=== PATIENT | female | born 1975 | race Two or more races ===

== ENCOUNTER 2024-06-04 15:13 | Emergency (ER) | payer MEDICAID, SELFPAY ==
[2024-06-04 15:23] VITALS: BP 111/73; PULSE 107; RESP 18; TEMP 37.1; O2SAT 96; BMI 24.0
--- NOTE | 2024-06-04 15:33 | PD.EDRME ---
Rapid Medical Screening Exam RME Arrival date/time: 06/04/24 15:13 49-year-old female presents to the emergency department today stating that she has diabetes concerned that she is been out of her insulin and her blood sugar is elevated Chief Complaint: General Adult/Misc Complain Vital signs: Vital Signs Temperature 98.7 F 06/04/24 15:23 Pulse Rate 107 H 06/04/24 15:23 Respiratory Rate 18 06/04/24 15:23 Blood Pressure 111/73 06/04/24 15:23 Pulse Oximetry (%) 96 06/04/24 15:23 Oxygen Delivery Method Room Air 06/04/24 15:23
[2024-06-04 15:45] LABS: Base Excess, Venous -7 (-3-3); O2 Saturation, Venous 58 % (96-97); PCO2, Venous 37 mmHg (36-56); PO2, Venous 30 mmHg (15-58)
[2024-06-04 15:53] LABS: Basophils % (Auto) 0 % (0-2.5); Eosinophils % (Auto) 0 % (0-10); Hematocrit 36.9 % (36.0-46.0); Hemoglobin 12.9 g/dL (12.0-16.0); Immature Granulocytes % (Auto) 0 % (0-0); Immature Granulocytes Auto 0.03 Thou/mm3 (0.00-0.00); Lymphocytes # (Auto) 1.7 Thou/mm3 (1.0-4.8); Lymphocytes % (Auto) 18 % (10-50); Mean Corpuscular Hemoglobin 33.2 pg (25.0-35.0); Mean Corpuscular Volume 95 fL (80-100); Monocytes # (Auto) 0.5 Thou/mm3 (0.0-0.8); Monocytes % (Auto) 5 % (0-12); Neutrophils # (Auto) 7.7 Thou/mm3 (1.8-7.7); Neutrophils % (Auto) 77 % (37-80); Nucleated Red Blood Cell % 0 /100 WBC (0); Platelet Count 326 Thou/mm3 (140-440); RDW Standard Deviation 49.1 fL (36.4-46.3); Red Blood Count 3.88 Miln/mm3 (4.00-5.20); White Blood Count 9.9 Thou/mm3 (3.6-11.0)
[2024-06-04 15:57] LABS: Beta Hydroxybutyrate 4.8 mmol/L (<0.6)
[2024-06-04 15:59] LABS: Glucose Estimated Average 232 mg/dL (80-131); Hemoglobin A1C 9.7 % Hgb (4.8-6.0)
[2024-06-04 16:06] LABS: Alanine Aminotransferase 20 U/L (10-49); Albumin, Serum 4.7 gm/dL (3.5-5.0); Albumin/Globulin Ratio 1.6 (1.2-2.2); Alkaline Phosphatase 136 U/L (46-116); Anion Gap 16 (7-16); Aspartate Amino Transferase 10 U/L (0-34); BUN/Creatinine Ratio 16 Ratio (12-20); Bilirubin,Total 0.5 mg/dL (0.3-1.2); Blood Urea Nitrogen 14 mg/dL (9-23); Calcium 9.6 mg/dL (8.3-10.6); Calcium (Corrected) 9.6 mg/dL (8.5-10.1); Carbon Dioxide 18.4 mMol/L (20.0-31.0); Chloride 101 mMol/L (98-107); Creatinine (Component) 0.9 mg/dL (0.6-1.3); Estimated Creatinine Clearance 66.5 mL/min (>60); Globulin 2.9 gm/dL (2.3-3.5); Glucose 228 mg/dL (74-106); Lipase 26 U/L (12-53); Osmolality,Calculated 277 (275-295); Potassium 3.8 mMol/L (3.4-5.1); Sodium 135 mMol/L (136-145); Total Protein 7.6 gm/dL (5.7-8.2); eGFR > 60 See Note
[2024-06-04 16:19] VITALS: BP 109/77; PULSE 104; RESP 17; TEMP 36.8; O2SAT 100
[2024-06-04 16:21] LABS: Collection Type, Urine Clean Catch
--- NOTE | 2024-06-04 16:33 | PD.EDADULT ---
ED General RME/HPI General Chief complaint: General Adult/Misc Complain Stated complaint: NOT FEELING GOOD OUT OF INSULIN Time Seen by Provider: 06/04/24 16:25 Arrival date/time: 06/04/24 15:13 CC: Elevated blood glucose level HPI the patient states she ran out of her medicine several days ago does not have an appointment again with her doctor until 07 June. The patient states that she is nauseated each time she eats food, but does not have persistent vomiting or diarrhea. Patient denies chest pain shortness of breath or difficulty breathing. RME / HPI RME / HPI narrative: 06/04/24 15:13 49-year-old female presents to the emergency department today stating that she has diabetes concerned that she is been out of her insulin and her blood sugar is elevated Related Data Home Medications ?Medication ?Instructions ?Recorded ?Confirmed atorvastatin 20 mg tablet 20 mg PO QPM 05/04/19 05/04/19 empagliflozin 10 mg tablet 10 mg PO QDAY 05/04/19 05/04/19 (Jardiance) sitagliptin phosphate 50 1 tab PO BID 05/04/19 05/04/19 mg-metformin 1,000 mg tablet (Janumet) Previous Rx's ?Medication ?Instructions ?Recorded insulin aspart U-100 100 unit/mL 7 unit (0.07 mL) subcut TID #15 mL 05/06/19 (3 mL) subcutaneous pen (Novolog FlexPen U-100 Insulin aspart) insulin detemir U-100 100 unit/mL 40 unit (0.4 mL) subcut QDAY #0 mL 05/06/19 subcutaneous solution (Levemir U-100 Insulin) insulin NPH isoph U-100 human 100 10 unit (0.1 mL) subcut QAM #15 mL 06/04/24 unit/mL (3 mL) subcutaneous pen (Humulin N NPH U-100 Insulin KwikPen) Allergies Allergy/AdvReac Type Severity Reaction Status Date / Time No Known Allergies Allergy Verified 05/04/19 07:12 Review of Systems Review of Systems Narrative Review of Systems: [General: Not in any acute distress Head normocephalic HEENT: Eyes: Pupils are PERRLA EOMs are intact nose no rhinorrhea mouth pink moist membranes uvula is midline swallow symmetrical all other subsystems of HEENT are within acceptable limits Neck is supple nontender Chest equal chest rise nontender to palpation Respiratory: Clear to auscultation no wheezes crackles or rubs CV: Rate rhythm is regular no murmurs rubs or clicks Abdomen is flat, soft nontender no masses positive bowel sounds all 4 quadrants Back: No CVA tenderness no spinous process tenderness from cervical spine thoracic and lumbar spine Skin: Intact no petechiae rash induration ulceration or crepitus Extremities: Moving all extremity against resistance cap refill less than 2 seconds neurosensory intact Neuro: Awake alert oriented x3 Glascow coma 15 no focal deficits] Course Quality Measures none Orders Category Date Time Status Glucose [Bedside Blood Glucose] NOW Care 06/04/24 17:46 Active A1C [Glycohemoglobin w (eAG)] Stat Lab 06/04/24 15:38 Completed Beta Hydroxybutyrate Stat Lab 06/04/24 15:38 Completed CBC Stat Lab 06/04/24 15:38 Completed Comprehensive Metabolic Panel Stat Lab 06/04/24 15:38 Completed HCG Qualitative,Urine Stat Lab 06/04/24 16:17 Completed Lipase Stat Lab 06/04/24 15:38 Completed UA, C/S IF [Urinalysis, C/S if Indicated] Stat Lab 06/04/24 16:17 Completed VBG [Venous Blood Gas] Stat Lab 06/04/24 15:38 Completed Ondansetron Odt [Zofran Odt] Med 06/04/24 16:37 Discontinued 4 mg PO X1 ONE Sodium Chloride 0.9% 1000 ml [Ns] 1,000 ml Med 06/04/24 16:15 Discontinued IV 999 mls/hr Sodium Chloride 0.9% 1000 ml [Ns] 1,000 ml Med 06/04/24 16:15 Discontinued IV 999 mls/hr Vital Signs Vital signs: Vital Signs Temperature 98.7 F 06/04/24 15:23 Pulse Rate 107 H 06/04/24 15:23 Respiratory Rate 18 06/04/24 15:23 Blood Pressure 111/73 06/04/24 15:23 Pulse Oximetry (%) 96 06/04/24 15:23 Oxygen Delivery Method Room Air 06/04/24 15:23 [facility] Patient data External records reviewed:: [facility] previous records Clinical information provided by:: patient Social determinants that could affect healthcare access:: none Patient has the following chronic illnesses:: Diabetes How is presenting disease/condition affected by chronic disease/condition?: exacerbated by Evaluation data The following diagnostics were reviewed and interpreted by me:: lab results and radiology exam(s) Lab and/or radiology exams considered but not ordered:: CBC shows no acute leukocytosis anemia thrombocytopenia VBG shows a pH of 7.30 with a normal pCO2 CMP shows no gap, elevated blood blood glucose of 245, pseudohyponatremia, no other significant electrolyte imbalances renal impairment, transaminitis or T. bili elevation. Beta hydroxybutyrate is 4.8, I believe this to be starvation driven. Interpretation Summary: Hyperglycemia was managed with fluids, patient be discharged home to continue on her medications when she gets them represcribed by [facility] in the meantime glargine pen is prescribed for the patient. Medications Medications considered but not ordered:: None Medication administrations:: Medication Administration History Discontinued Medications Sodium Chloride (Ns) 1,000 mls @ 999 mls/hr IV .Q1H1M ONE Stop: 06/04/24 17:15 Last Admin: 06/04/24 17:12 Dose: 999 mls/hr Documented By: Sodium Chloride (Ns) 1,000 mls @ 999 mls/hr IV .Q1H1M ONE Stop: 06/04/24 17:15 Last Admin: 06/04/24 17:15 Dose: Not Given Documented By: Non-Admin Reason: Cancelled by Provider Ondansetron HCl (Ondansetron Odt 4 Mg Tabrap) 4 mg PO X1 ONE; Protocol Stop: 06/04/24 16:38 Last Admin: 06/04/24 17:14 Dose: 4 mg Documented By: None Consultations Consultation(s) initiated? (list below): No Diagnosis Differential Diagnosis ED Complaint MDM: DKA dehydration hyperglycemia Most likely diagnosis given after review of the tests above:: Diabetes with hyperglycemia Admission Indicated Admission indicated?: not indicated Explain why admission is indicated or not indicated:: Stable for discharge Admission Request Was there a request for admission?: No Disposition Plan Disposition Plan: Discharge Discharge Attestation Discharge Attestation: The patient and all family members were given an opportunity to ask questions and understood the discharge instructions. Discharge instructions specifically effects, indications for sooner follow up or return to the emergency department, and the expected course of current diagnosis. Patient condition: Stable Medical Decision Making Differential Diagnosis Differential Diagnosis: DKA dehydration hyperglycemia Lab Data 06/04/24 15:38 06/04/24 15:38 Labs: Lab Results 06/04/24 06/04/24 Range/Units 15:38 16:17 WBC 9.9 (3.6-11.0) Thou/mm3 RBC 3.88 L (4.00-5.20) Miln/mm3 Hgb 12.9 (12.0-16.0) g/dL Hct 36.9 (36.0-46.0) % MCV 95 (80-100) fL MCH 33.2 (25.0-35.0) pg MCHC 35.0 (31.0-37.0) g/dl RDW Std Deviation 49.1 H (36.4-46.3) fL Plt Count 326 (140-440) Thou/mm3 Neut % (Auto) 77 (37-80) % Lymph % (Auto) 18 (10-50) % Tama % (Auto) 5 (0-12) % Eos % (Auto) 0 (0-10) % Baso % (Auto) 0 (0-2.5) % Neut # (Auto) 7.7 (1.8-7.7) Thou/mm3 Lymph # (Auto) 1.7 (1.0-4.8) Thou/mm3 Tama # (Auto) 0.5 (0.0-0.8) Thou/mm3 Eos # (Auto) 0.0 (0.0-0.5) Thou/mm3 Baso # (Auto) 0.0 (0.0-0.2) Thou/mm3 Immature Gran # (Auto) 0.03 H (0.00-0.00) Thou/mm3 Absolute Nucleated RBC 0.00 (0.00-0.00) Thou/mm3 Immature Gran % 0 (0-0) % Nucleated RBC % 0 (0) /100 WBC VBG pH 7.30 L (7.33-7.66) VBG pCO2 37 (36-56) mmHg VBG pO2 30 (15-58) mmHg VBG O2 Sat (Britney) 58 L (96-97) % VBG Base Excess -7 L (-3-3) Sodium 135 L (136-145) mMol/L Potassium 3.8 (3.4-5.1) mMol/L Chloride 101 (98-107) mMol/L Carbon Dioxide 18.4 L (20.0-31.0) mMol/L Anion Gap 16 (7-16) BUN 14 (9-23) mg/dL Creatinine 0.9 (0.6-1.3) mg/dL Estim Creat Clear Calc 66.5 (>60) mL/min eGFR > 60 (60 - ) See Note BUN/Creatinine Ratio 16 (12-20) Ratio Glucose 228 H (74-106) mg/dL Estimated Ave Glu mg/dL 232 H (80-131) mg/dL Hemoglobin A1c 9.7 H (4.8-6.0) % Hgb Calculated Osmolality 277 (275-295) Calcium 9.6 (8.3-10.6) mg/dL Corrected Calcium 9.6 (8.5-10.1) mg/dL Total Bilirubin 0.5 (0.3-1.2) mg/dL AST 10 (0-34) U/L ALT 20 (10-49) U/L Alkaline Phosphatase 136 H (46-116) U/L Total Protein 7.6 (5.7-8.2) gm/dL Albumin 4.7 (3.5-5.0) gm/dL Globulin 2.9 (2.3-3.5) gm/dL Albumin/Globulin Ratio 1.6 (1.2-2.2) Lipase 26 (12-53) U/L Beta-Hydroxybutyrate/Acetoacetate 4.8 H (<0.6) mmol/L Ur Collection Type Clean Catch Urine Color Yellow (Lt Yel-Yel) Urine Clarity Hazy (Clear/Hazy) Urine pH 5.5 (5.0-7.0) Ur Specific Powell 1.022 (1.001-1.035) Urine Protein 1+ A (Neg - Trace) Urine Glucose (UA) 4+ A (Negative) Urine Ketones 4+ A (Negative) Urine Blood Negative (Negative) Urine Nitrite Negative (Negative) Urine Bilirubin 1+ A (Negative) Urine Urobilinogen (Auto) 2.0 (0.0-1.0) mg/dL Ur Leukocyte Esterase Negative (Negative) Urine RBC 3 (0-3) /hpf Urine WBC 6 H (0-5) /hpf Ur Squamous Epith Cells 6 H (0-5) /hpf Urine Bacteria None (None) Hyaline Casts < 1 (0-1) /hpf Ur Culture Indicated? Not Indicated Urine HCG, Qual Negative Discharge Plan Plan Patient Disposition: HOME (Self Care) Patient condition on transfer: Stable Prescriptions/Referrals Prescriptions/Med Rec: New Humulin N NPH Insulin KwikPen 100 unit/mL (3 mL) insulin pen 10 unit subcut QAM Qty: 15 0RF No Action atorvastatin 20 mg Tablet 20 mg PO QPM Janumet 50-1,000 mg Tablet 1 tab PO BID Jardiance 10 mg Tablet 10 mg PO QDAY Novolog FlexPen U-100 Insulin 100 unit/mL (3 mL) insulin pen 7 unit SC TID Qty: 15 0RF Levemir U-100 Insulin 100 unit/mL Solution 40 unit SUBCUT QDAY Qty: 0 0RF Problem List Clinical Impression: Hyperglycemia Patient/Caregiver Discharge Instructions Education Materials: ED Diabetes with High Blood Sugar Additional Instructions: Take the medications as prescribed if there is a worsening of symptoms make sure you follow-up with your primary care doctor as stated on your appointment date. Print Language: [place] Stand Alone Forms: Aysha Award Info., Patient Portal Info Letter, Work/School Release PA/ORGANIZATIONAL DEVELOPMENT CONSULTANT Supervising Physician PA/ORGANIZATIONAL DEVELOPMENT CONSULTANT Supervising Physician: Randolph Haddad ENP
[2024-06-04 16:41] LABS: HCG Qualitative,Urine Negative
[2024-06-04 16:49] LABS: Bilirubin,Urine 1+ (Negative); Blood,Urine Negative (Negative); Color,Urine Yellow (Lt Yel-Yel); Culture Indicated,Urine Not Indicated; Glucose, Urine 4+ (Negative); Hyaline Casts,Urine < 1 /hpf (0-1); Ketones,Urine 4+ (Negative); Leukocyte Esterase,Urine Negative (Negative); Nitrite,Urine Negative (Negative); PH,Urine 5.5 (5.0-7.0); Protein,Urine 1+ (Neg - Trace); RBC,Urine 3 /hpf (0-3); Specific Gravity,Urine 1.022 (1.001-1.035); Squamous Epithelial Cell,Urine 6 /hpf (0-5); WBC,Urine 6 /hpf (0-5)
[2024-06-04] MEDS: SODIUM CHLORIDE 0.9% 1000 ML 1,000 ML 999 ML IV (17:12)
[2024-06-04] MEDS: ONDANSETRON ODT 4 MG TABRAP PO (17:14)
[2024-06-04 17:16] LABS: Clarity,Urine Hazy (Clear/Hazy)
[2024-06-04 18:12] VITALS: BP 107/63; PULSE 88; RESP 16; TEMP 36.9; O2SAT 97
--- NOTE | 2024-06-04 18:28 | PC.NURSE ---
FOOD GIVEN TO PT AT THIS TIME PER DOCTORS ORDERS
--- NOTE | 2024-06-04 18:30 | PC.NURSE ---
Patient provided with sandwich and juice.
== END 2024-06-04 19:19 | disposition home or self-care (01) ==
LOC: SERX 19:02
PROVIDERS: Nurse Practitioner Primary Care; Emergency Provider Emergency Medicine
DX: R73.9 Hyperglycemia, unspecified (principal)
CPT/HCPCS: 36415; 80053; 81001; 81025; 82010; 82803; 83036; 83690; 85025; 96360; 96361; 99284; J7030; Q0162

== ENCOUNTER 2024-06-05 11:27 | Inpatient (IN) | payer MEDICAID, SELFPAY ==
[2024-06-05] VITALS (20 sets, daily range): BP systolic 90–136; BP diastolic 40–76; PULSE 78–130; RESP 15–98; TEMP 36.6–37.3; O2SAT 95–99; BMI 25.7
--- NOTE | 2024-06-05 12:51 | PD.EDADULT ---
ED General RME/HPI General Chief complaint: General Adult/Misc Complain Stated complaint: FEELS SHAKEY AND DOES NOT FEEL GOOD Time Seen by Provider: 06/05/24 11:54 Arrival date/time: 06/05/24 11:27 CC: High blood sugar HPI nausea and vomiting HPI patient was seen here yesterday for the same complaint after running out of her medications due to them not being available at the pharmacy she has an appointment on 07 June for her primary care provider. Patient was discharged yesterday with insulin pen prescription however it was not covered by her insurance, so the patient did not picking supervisor her medications and return to the emergency room today with a high blood sugar and nausea. Patient has no other complaints. Related Data Home Medications ?Medication ?Instructions ?Recorded ?Confirmed insulin glulisine U-100 100 See Rx Instructions .Route .COMPLEX 06/05/24 06/05/24 unit/mL subcutaneous pen (Apidra SoloStar U-100 Insulin) semaglutide 1 mg/dose (4 mg/3 mL) 1 mg subcut QWEEK 06/05/24 06/05/24 subcutaneous pen injector (Ozempic) Previous Rx's ?Medication ?Instructions ?Recorded flash glucose scanning reader #1 ea 06/07/24 (FreeStyle Jhonatan 2 Cove) flash glucose sensor (FreeStyle #1 ea 06/07/24 Jhonatan 2 Sensor kit) insulin degludec 200 unit/mL (3 20 unit (0.1 mL) subcut QDAY #9 mL 06/07/24 mL) subcutaneous pen pen needle, diabetic 30 gauge x #1,200 ea 06/07/24 5/16 Allergies Allergy/AdvReac Type Severity Reaction Status Date / Time No Known Allergies Allergy Verified 06/05/24 11:29 Review of Systems Review of Systems Narrative Review of Systems: GEN: No fever, no chills, no weight loss EYES: No discharge, no visual changes, no pain HEENT: No ear pain, no congestion, no sore throat PULM: No shortness of breath, no cough, no congestion CV: No chest pain, no dyspnea on exertion, no palpitations GI: + nausea, + vomiting, no diarrhea, no pain, no constipation : No frequency, no urgency, no dysuria MUSC/SKEL: No joint pain, no back pain SKIN: No rash PSYCH: No hallucinations, no depression HEME/LYMPH: No easy bleeding or bruising tendencies NEURO: No weakness, no headache Past Medical History Past Medical History CARDIAC: Positive Hypercholesterolemia; Negative Congestive Heart Failure RESPIRATORY: Positive Smoking and Tobacco Use; Negative Chronic Obstructive Pulmonary Disease (COPD) GENITOURINARY: Negative Renal Disease ENDOCRINE: Positive Diabetes Mellitus Type 2; Negative Diabetes Mellitus Type 1 OTHER HISTORY: Positive Hospitalization Surgical History SURGICAL: Positive Section Social History SMOKING STATUS: Current every day smoker SECOND HAND EXPOSURE: No SUBSTANCE USE: does not use ED Exam Narrative Physical exam: [General: Thin, but not emaciated and mild discomfort but not in any acute distress Head normocephalic HEENT: Within acceptable limits Neck is supple nontender Chest equal chest rise nontender to palpation Respiratory: Clear to auscultation no wheezes crackles or rubs CV: Rate rhythm is regular, tachycardic, no murmurs rubs or clicks Abdomen is distended secondary to body habitus soft nontender no masses positive bowel sounds all 4 quadrants Back: No CVA tenderness no spinous process tenderness from cervical spine thoracic and lumbar spine Skin: Intact no petechiae rash induration ulceration or crepitus Extremities: Moving all extremity against resistance cap refill less than 2 seconds neurosensory intact Neuro: Awake alert oriented x3 Glascow coma 15 no focal deficits] Course Course Course Narrative: Patient is in DKA with a gap of 22, CO2 of less than 12. Blood sugar of 680 and elevated beta hydroxy although I do think part of this is starvation. Patient was seen here yesterday and was borderline but not in full-blown DKA however the patient did not picking supervisor insulin as prescribed and returns today with persistent nausea and vomiting. Patient's case discussed with Dr. Martinez, and Dr. Merino, who agreed to accept the patient for admission for DKA. Quality Measures VTE prophylaxis Orders Category Date Time Status Bedside Blood Glucose NOW Care 06/05/24 12:40 Completed EKG (ED ONLY) *Do not use* NOW Care 06/05/24 12:06 Completed Insert IV NOW Care 06/05/24 12:07 Completed EKG (ED Only) Stat Exams 06/05/24 12:06 Ordered Beta Hydroxybutyrate Stat Lab 06/05/24 12:36 Completed CBC Stat Lab 06/05/24 12:36 Completed Comprehensive Metabolic Panel Stat Lab 06/05/24 12:36 Completed Magnesium Stat Lab 06/05/24 12:36 Completed VBG [Venous Blood Gas] Stat Lab 06/05/24 12:36 Completed Insulin Reg 100 Units/100 ml [Myxredlin] Med 06/05/24 14:09 Discontinued 100 unit in 100 ml IV 0.1 unit/kg/hr Metoclopramide Inj [Reglan Inj] Med 06/05/24 13:47 Discontinued 5 mg IVP X1 ONE Ondansetron Inj [Zofran Inj] Med 06/05/24 12:07 Discontinued 4 mg IV X1 ONE Ondansetron Inj [Zofran Inj] Med 06/05/24 12:50 Discontinued 4 mg IV X1 ONE Sodium Chloride 0.9% 1000 ml [Ns] 1,000 ml Med 06/05/24 13:19 Discontinued IV 250 mls/hr Sodium Chloride 0.9% 1000 ml [Ns] 1,000 ml Med 06/05/24 12:07 Discontinued IV 999 mls/hr Sodium Chloride 0.9% 1000 ml [Ns] 1,000 ml Med 06/05/24 12:50 Discontinued IV 999 mls/hr Vital Signs Vital signs: Vital Signs Temperature 99.1 F 06/05/24 11:55 Pulse Rate 113 H 06/05/24 11:55 Respiratory Rate 16 06/05/24 11:55 Blood Pressure 90/51 L 06/05/24 11:55 Pulse Oximetry (%) 97 06/05/24 11:55 Oxygen Delivery Method Room Air 06/05/24 11:55 [facility] Patient data External records reviewed:: [facility] previous records Clinical information provided by:: patient Social determinants that could affect healthcare access:: none Patient has the following chronic illnesses:: None How is presenting disease/condition affected by chronic disease/condition?: uneffected by Evaluation data The following diagnostics were reviewed and interpreted by me:: lab results and radiology exam(s) Lab and/or radiology exams considered but not ordered:: CBC shows leukocytosis no anemia thrombocytopenia CMP shows pseudohyponatremia significantly elevated glucose at 685, with a CO2 less than 10 gap of 22. No transaminitis or T. bili elevation VBG shows a pH of 7.22 base deficit of 19 low pCO2 Interpretation Summary: Patient has persistent nausea vomiting this patient is in DKA. Will admit to ICU Medications Medications considered but not ordered:: None Medication administrations:: Medication Administration History Discontinued Medications Acetaminophen (Acetaminophen 325 Mg Tablet) 650 mg PO Q4HR PRN PRN Reason: PAIN SCALE 1-3 (mild Stop: 07/05/24 14:25 Acetaminophen (Acetaminophen Supp 650 Mg Supp) 650 mg CO Q4HR PRN PRN Reason: PAIN SCALE 1-3 (mild Stop: 07/05/24 14:25 Al Hydrox/Mg Hydrox/Simethicone (Mg Hyd/Al Hyd/Tim (Maalox Reg) Susp 30 Ml Udc) 30 ml PO Q4HR PRN PRN Reason: Heartburn or Upset Stomach Stop: 07/05/24 14:25 Dextrose (Dextrose 50%-Water Inj 50 Ml Syringe) 25 ml IV PRNMRX1 PRN PRN Reason: Blood Sugar - Low Dextrose (Dextrose 50%-Water Inj 50 Ml Syringe) 25 ml IV Q15MIN PRN PRN Reason: BG 50-70 responsive npo pt Stop: 07/06/24 09:58 Dextrose (Dextrose 50%-Water Inj 50 Ml Syringe) 50 ml IV Q15MIN PRN PRN Reason: BG <50 OR BG <70 & pt unresponsive Stop: 07/06/24 09:58 Enoxaparin Sodium (Enoxaparin Sod Inj 40 Mg/0.4 Ml Syringe) 40 mg SC QDAY WANDA Stop: 06/20/24 08:59 Last Admin: 06/07/24 10:39 Dose: 40 mg Documented By: Admin: 06/06/24 08:00 Dose: 40 mg Documented By: DIANA Glucagon (Glucagon Inj 1 Mg Vial) 1 mg IM Q15MIN PRN PRN Reason: BG <70, and no IV access Sodium Chloride (Ns) 1,000 mls @ 999 mls/hr IV .Q1H1M ONE Stop: 06/05/24 13:07 Last Infusion: 06/05/24 15:00 Dose: Infused Documented By: Admin: 06/05/24 12:59 Dose: 999 mls/hr Documented By: EF Sodium Chloride (Ns) 1,000 mls @ 999 mls/hr IV .Q1H1M ONE Stop: 06/05/24 13:50 Last Infusion: 06/05/24 15:00 Dose: Infused Documented By: Admin: 06/05/24 13:01 Dose: 999 mls/hr Documented By: EF Sodium Chloride (Ns) 1,000 mls @ 250 mls/hr IV .Q4H WANDA Stop: 06/06/24 13:18 Last Infusion: 06/06/24 10:16 Dose: Infused Documented By: Admin: 06/05/24 13:59 Dose: 250 mls/hr Documented By: EF Insulin Human Regular (Myxredlin) 100 unit in 100 mls @ 6.577 mls/hr IV .[id number] PRN; Protocol PRN Reason: PER PROTOCOL Stop: 07/05/24 14:08 Last Titration: 06/06/24 09:00 Dose: 0 unit/kg/hr, 0 mls/hr Documented By: DIANA Co-signed By: MR Titration: 06/06/24 08:00 Dose: 0.025 unit/kg/hr, 1.644 mls/hr Documented By: DIANA Co-signed By: MR Titration: 06/06/24 07:00 Dose: 0.05 unit/kg/hr, 3.289 mls/hr Documented By: AG Co-signed By: MR Titration: 06/06/24 06:00 Dose: 0.025 unit/kg/hr, 1.644 mls/hr Documented By: BB Co-signed By: SA Titration: 06/06/24 05:00 Dose: 0.025 unit/kg/hr, 1.644 mls/hr Documented By: BB Co-signed By: SA Titration: 06/06/24 04:00 Dose: 0.025 unit/kg/hr, 1.644 mls/hr Documented By: BB Co-signed By: SA Titration: 06/06/24 03:13 Dose: 0.025 unit/kg/hr, 1.644 mls/hr Documented By: BB Co-signed By: SA Titration: 06/06/24 02:00 Dose: 0.05 unit/kg/hr, 3.289 mls/hr Documented By: BB Co-signed By: SA Titration: 06/06/24 01:00 Dose: 0.05 unit/kg/hr, 3.289 mls/hr Documented By: BB Co-signed By: CLT Titration: 06/06/24 00:00 Dose: 0.05 unit/kg/hr, 3.289 mls/hr Documented By: BB Co-signed By: CLT Titration: 06/05/24 23:00 Dose: 0.05 unit/kg/hr, 3.289 mls/hr Documented By: MENG Co-signed By: CLT Titration: 06/05/24 22:00 Dose: 0.05 unit/kg/hr, 3.289 mls/hr Documented By: BB Co-signed By: CLT Titration: 06/05/24 21:00 Dose: 0.05 unit/kg/hr, 3.289 mls/hr Documented By: BB Co-signed By: CLT Titration: 06/05/24 20:00 Dose: 0.05 unit/kg/hr, 3.289 mls/hr Documented By: MENG Co-signed By: CLT Titration: 06/05/24 19:18 Dose: 0.05 unit/kg/hr, 3.289 mls/hr Documented By: MENG Co-signed By: CMN Titration: 06/05/24 18:00 Dose: 0.1 unit/kg/hr, 6.577 mls/hr Documented By: AT Co-signed By: WL Titration: 06/05/24 17:00 Dose: 0.1 unit/kg/hr, 6.577 mls/hr Documented By: AT Co-signed By: WL Titration: 06/05/24 16:00 Dose: 0.1 unit/kg/hr, 6.577 mls/hr Documented By: AT Co-signed By: WL Titration: 06/05/24 15:38 Dose: 0.1 unit/kg/hr, 6.577 mls/hr Documented By: SHELLIE Co-signed By: GM Admin: 06/05/24 14:38 Dose: 0.1 unit/kg/hr, 6.577 mls/hr Documented By: KM Co-signed By: HITESH Potassium Chloride (Kcl Ivpb) 10 meq in 100 mls @ 100 mls/hr IV .Q1H PRN PRN Reason: IF POTASSIUM LESS THAN 3.3 Stop: 07/05/24 14:25 Magnesium Sulfate (Magnesium Sulfate Ivpb) 2 gm in 50 mls @ 25 mls/hr IV .Q2H PRN PRN Reason: PER DKA PROTOCOL Stop: 07/05/24 14:25 Last Infusion: 06/06/24 10:16 Dose: Infused Documented By: Admin: 06/05/24 16:20 Dose: 25 mls/hr Documented By: AT Dextrose/Lactated Ringer's (D5-Lr) 1,000 mls @ 250 mls/hr IV .Q4H PRN PRN Reason: PER PROTOCOL Stop: 07/05/24 14:25 Lactated Ringer's (Lactated Ringers) 1,000 mls @ 250 mls/hr IV .Q4H PRN PRN Reason: PER PROTOCOL Stop: 06/06/24 14:25 Potassium Chloride 20 meq/ (Lactated Ringer's) 1,010 mls @ 250 mls/hr IV .Q4H3M PRN PRN Reason: K LEVEL 3.3 TO 5.3mM/L Stop: 07/05/24 14:25 Last Infusion: 06/05/24 19:19 Dose: 0 mls/hr Documented By: Admin: 06/05/24 17:20 Dose: 250 mls/hr Documented By: AT Potassium Chloride 40 meq/ (Lactated Ringer's) 1,020 mls @ 250 mls/hr IV .Q4H5M PRN PRN Reason: K LEVEL < 3.3 mM/L Stop: 07/05/24 14:25 Potassium Chloride 40 meq/ (Dextrose/Lactated Ringer's) 1,020 mls @ 250 mls/hr IV .Q4H5M PRN PRN Reason: K LEVEL < 3.3mM/L Stop: 07/05/24 14:25 Potassium Cl/Dextrose/Lact Ringer's (Kcl 20 Meq/L In D5-Lr) 20 meq in 1,000 mls @ 250 mls/hr IV .Q4H PRN PRN Reason: K LEVEL 3.3 TO 5.3 mM/L Stop: 07/05/24 14:25 Last Infusion: 06/06/24 10:17 Dose: Infused Documented By: Admin: 06/06/24 04:12 Dose: 250 mls/hr Documented By: Infusion: 06/06/24 04:12 Dose: Infused Documented By: Admin: 06/05/24 23:35 Dose: 250 mls/hr Documented By: Infusion: 06/05/24 23:16 Dose: Infused Documented By: Admin: 06/05/24 19:16 Dose: 250 mls/hr Documented By: BB Potassium Chloride (Kcl Ivpb) 10 meq in 100 mls @ 50 mls/hr IV PRN PRN PRN Reason: K LEVEL 3.3 to 5.3 & BG > 200 Stop: 07/05/24 14:25 Potassium Phosphate (Pot Phos 15 Mmol In Ns 250 Ml) 15 mmol in 250 mls @ 62.5 mls/hr IV PRN PRN PRN Reason: Phosphate <= 1mg/dL Stop: 07/05/24 14:25 Sodium Phosphate 15 mmol/ (Sodium Chloride) 255 mls @ 62.5 mls/hr IV .Q4H5M PRN PRN Reason: Phosphate <= 1mg/dL and K> than 5.3 Stop: 07/05/24 14:25 Dextrose/Lactated Ringer's (D5-Lr) 1,000 mls @ 250 mls/hr IV .Q4H PRN PRN Reason: PER PROTOCOL Stop: 07/05/24 15:07 Lactated Ringer's (Lactated Ringers) 1,000 mls @ 250 mls/hr IV .Q4H PRN PRN Reason: PER PROTOCOL Stop: 06/06/24 15:07 Insulin Glargine (Insulin Glargine (Lantus) 5 Unit/0.05 Ml (Per 5 Units)) 35 unit SC X1 ONE Stop: 06/06/24 07:43 Last Admin: 06/06/24 08:00 Dose: 35 unit Documented By: AG Co-signed By: Insulin Glargine (Insulin Glargine (Lantus) 5 Unit/0.05 Ml (Per 5 Units)) 35 unit SC QDAY [facility] Stop: 07/07/24 08:59 Insulin Glargine (Insulin Glargine (Lantus) 5 Unit/0.05 Ml (Per 5 Units)) 20 unit SC HS [facility] Stop: 07/07/24 20:59 Insulin Human Lispro (Insulin Lispro (Admelog) 1 Unit/0.01 Ml Unit) 0 unit SC ACHS [facility]; Protocol Stop: 07/06/24 11:29 Last Admin: 06/07/24 08:15 Dose: Not Given Documented By: BF Non-Admin Reason: Per Protocol Comments: 129 Admin: 06/06/24 20:07 Dose: 4 unit Documented By: JULISSA Co-signed By: MELITON Admin: 06/06/24 18:33 Dose: Not Given Documented By: BF Non-Admin Reason: Per Protocol Comments: 106 Admin: 06/06/24 12:13 Dose: 10 unit Documented By: MARY Co-signed By: THOMAS Insulin Human Lispro (Insulin Lispro (Admelog) 1 Unit/0.01 Ml Unit) 0 unit SC ACHS WANDA; Protocol Stop: 07/06/24 11:29 Last Admin: 06/07/24 11:38 Dose: 6 unit Documented By: SG Co-signed By: GC Insulin Human Regular (Insulin Hum Regular 1 Unit/0.01 Ml (Per Unit)) 8 unit IV X1 ONE Stop: 06/05/24 14:27 Last Admin: 06/05/24 14:46 Dose: 8 unit Documented By: KM Co-signed By: EF Magnesium Hydroxide (Milk Of Magnesia Susp 30 Ml Udc) 30 ml PO QDAY PRN PRN Reason: CONSTIPATION Stop: 07/05/24 14:25 Metoclopramide HCl (Metoclopramide Inj 5 Mg/Ml Vial 2 Ml) 5 mg IVP X1 ONE; Protocol Stop: 06/05/24 13:48 Last Admin: 06/05/24 13:59 Dose: 5 mg Documented By: EF Nitroglycerin (Nitroglycerin 0.4 Mg Subl Btl #25) 0.4 mg SL Q5MIN PRN PRN Reason: CHEST PAIN Ondansetron HCl (Ondansetron Inj 2 Mg/Ml Inj 2 Ml) 4 mg IV X1 ONE; Protocol Stop: 06/05/24 12:08 Last Admin: 06/05/24 13:02 Dose: 4 mg Documented By: EF Ondansetron HCl (Ondansetron Inj 2 Mg/Ml Inj 2 Ml) 4 mg IV X1 ONE; Protocol Stop: 06/05/24 12:51 Last Admin: 06/05/24 14:08 Dose: Not Given Documented By: EF Non-Admin Reason: Duplicate Medication on eMAR Ondansetron HCl (Ondansetron Inj 2 Mg/Ml Inj 2 Ml) 4 mg IV Q6HR PRN PRN Reason: NAUSEA OR VOMITING Stop: 07/05/24 14:25 Last Admin: 06/05/24 20:13 Dose: 4 mg Documented By: BB Pantoprazole Sodium (Pantoprazole Inj 40 Mg Vial) 40 mg IV QDAY WANDA Stop: 07/06/24 08:59 Last Admin: 06/07/24 10:39 Dose: 40 mg Documented By: Admin: 06/06/24 08:00 Dose: 40 mg Documented By: AG Potassium Phos/Sodium Phos (N[facility] 1 Packet (1.5 Gm)) 2 packet PO X1 ONE Stop: 06/06/24 09:49 Last Admin: 06/06/24 10:16 Dose: Not Given Documented By: DIANA Non-Admin Reason: Discontinued Sodium Bicarbonate (Sodium Bicarb Inj 8.4% Syr 50 Ml Syringe) 50 ml IV PRN PRN PRN Reason: For ph <= to 7.0 Stop: 07/05/24 14:25 None Consultations Consultation(s) initiated? (list below): Yes Consultation #1 (Physician, Specialty, Details): Wilber Time: 14:20 Diagnosis Differential Diagnosis ED Complaint MDM: Diabetes with hyperglycemia DKA gastroparesis Most likely diagnosis given after review of the tests above:: DKA Admission Indicated Admission indicated?: indicated Explain why admission is indicated or not indicated:: Quires further close medical management Admission Request Was there a request for admission?: No Disposition Plan Disposition Plan: Admit Medical Decision Making Differential Diagnosis Differential Diagnosis: Diabetes with hyperglycemia DKA gastroparesis Lab Data 06/07/24 06:30 06/07/24 04:37 Labs: Lab Results 06/05/24 Range/Units 12:36 WBC 16.1 H D (3.6-11.0) Thou/mm3 RBC 3.87 L (4.00-5.20) Miln/mm3 Hgb 12.8 (12.0-16.0) g/dL Hct 37.9 (36.0-46.0) % MCV 98 (80-100) fL MCH 33.1 (25.0-35.0) pg MCHC 33.8 (31.0-37.0) g/dl RDW Std Deviation 52.5 H (36.4-46.3) fL Plt Count 281 D (140-440) Thou/mm3 Neut % (Auto) 84 H (37-80) % Lymph % (Auto) 12 (10-50) % Gulf % (Auto) 3 (0-12) % Eos % (Auto) 0 (0-10) % Baso % (Auto) 0 (0-2.5) % Neut # (Auto) 13.4 H (1.8-7.7) Thou/mm3 Lymph # (Auto) 2.0 (1.0-4.8) Thou/mm3 Gulf # (Auto) 0.5 (0.0-0.8) Thou/mm3 Eos # (Auto) 0.0 (0.0-0.5) Thou/mm3 Baso # (Auto) 0.0 (0.0-0.2) Thou/mm3 Immature Gran # (Auto) 0.08 H (0.00-0.00) Thou/mm3 Absolute Nucleated RBC 0.00 (0.00-0.00) Thou/mm3 Immature Gran % 1 H (0-0) % Nucleated RBC % 0 (0) /100 WBC VBG pH 7.22 L (7.33-7.66) VBG pCO2 15 L D (36-56) mmHg VBG pO2 57 D (15-58) mmHg VBG O2 Sat (Britney) 89 L (96-97) % VBG Base Excess -19 L (-3-3) Sodium 129 L (136-145) mMol/L Potassium 4.9 D (3.4-5.1) mMol/L Chloride 97 L (98-107) mMol/L Carbon Dioxide < 10.0 L* (20.0-31.0) mMol/L Anion Gap 22 H (7-16) BUN 11 (9-23) mg/dL Creatinine 1.2 (0.6-1.3) mg/dL Estim Creat Clear Calc 50.6 L (>60) mL/min eGFR 55 L (60 - ) See Note BUN/Creatinine Ratio 9 L (12-20) Ratio Glucose 685 H* D (74-106) mg/dL Calculated Osmolality 291 (275-295) Calcium 9.5 (8.3-10.6) mg/dL Corrected Calcium 9.5 (8.5-10.1) mg/dL Magnesium 1.8 (1.6-2.6) mg/dL Total Bilirubin 0.4 (0.3-1.2) mg/dL AST 17 (0-34) U/L ALT 13 (10-49) U/L Alkaline Phosphatase 136 H (46-116) U/L Total Protein 7.4 (5.7-8.2) gm/dL Albumin 4.6 (3.5-5.0) gm/dL Globulin 2.8 (2.3-3.5) gm/dL Albumin/Globulin Ratio 1.6 (1.2-2.2) Beta-Hydroxybutyrate/Acetoacetate 6.1 H (<0.6) mmol/L Discharge Plan Plan Patient Disposition: Admit Acute Care w/in Hospital Patient condition on transfer: Stable Problem List Clinical Impression: DKA (diabetic ketoacidoses), Nausea, Vomiting PA/RESPIRATORY THERAPY ASSISTANT Supervising Physician PA/RESPIRATORY THERAPY ASSISTANT Supervising Physician: Randolph Haddad ENP
[2024-06-05 12:55] LABS: Base Excess, Venous -19 (-3-3); O2 Saturation, Venous 89 % (96-97); PCO2, Venous 15 mmHg (36-56); PO2, Venous 57 mmHg (15-58); pH, Venous 7.22 (7.33-7.66)
--- NOTE | 2024-06-05 12:56 | PC.NURSE ---
WENT TO DO PT EKG PROVIDER MELY WAS AT BEDSIDE SPEAKING WITH PT AND STATED THAT PT DIDNT NEED EKG
[2024-06-05 12:59] LABS: Beta Hydroxybutyrate 6.1 mmol/L (<0.6)
[2024-06-05] MEDS: SODIUM CHLORIDE 0.9% 1000 ML 1,000 ML 999 ML IV ×2 (12:59→13:01)
[2024-06-05 13:00] LABS: Basophils % (Auto) 0 % (0-2.5); Eosinophils % (Auto) 0 % (0-10); Hematocrit 37.9 % (36.0-46.0); Hemoglobin 12.8 g/dL (12.0-16.0); Immature Granulocytes % (Auto) 1 % (0-0); Immature Granulocytes Auto 0.08 Thou/mm3 (0.00-0.00); Lymphocytes % (Auto) 12 % (10-50); Mean Corpuscular HGB Conc 33.8 g/dl (31.0-37.0); Mean Corpuscular Hemoglobin 33.1 pg (25.0-35.0); Mean Corpuscular Volume 98 fL (80-100); Monocytes # (Auto) 0.5 Thou/mm3 (0.0-0.8); Monocytes % (Auto) 3 % (0-12); Neutrophils # (Auto) 13.4 Thou/mm3 (1.8-7.7); Neutrophils % (Auto) 84 % (37-80); Nucleated Red Blood Cell % 0 /100 WBC (0); Platelet Count 281 Thou/mm3 (140-440); RDW Standard Deviation 52.5 fL (36.4-46.3); Red Blood Count 3.87 Miln/mm3 (4.00-5.20); White Blood Count 16.1 Thou/mm3 (3.6-11.0)
[2024-06-05] MEDS: ONDANSETRON INJ 2 MG/ML INJ 2 ML 4 MG IV ×2 (13:02→20:13)
[2024-06-05 13:50] LABS: Alanine Aminotransferase 13 U/L (10-49); Albumin, Serum 4.6 gm/dL (3.5-5.0); Albumin/Globulin Ratio 1.6 (1.2-2.2); Alkaline Phosphatase 136 U/L (46-116); Aspartate Amino Transferase 17 U/L (0-34); BUN/Creatinine Ratio 9 Ratio (12-20); Bilirubin,Total 0.4 mg/dL (0.3-1.2); Blood Urea Nitrogen 11 mg/dL (9-23); Calcium 9.5 mg/dL (8.3-10.6); Calcium (Corrected) 9.5 mg/dL (8.5-10.1); Chloride 97 mMol/L (98-107); Creatinine (Component) 1.2 mg/dL (0.6-1.3); Estimated Creatinine Clearance 50.6 mL/min (>60); Globulin 2.8 gm/dL (2.3-3.5); Magnesium 1.8 mg/dL (1.6-2.6); Osmolality,Calculated 291 (275-295); Potassium 4.9 mMol/L (3.4-5.1); Sodium 129 mMol/L (136-145); Total Protein 7.4 gm/dL (5.7-8.2); eGFR 55 See Note
[2024-06-05 13:51] LABS: Glucose 685 mg/dL (74-106)
[2024-06-05] MEDS: METOCLOPRAMIDE INJ 5 MG/ML VIAL 2 ML IVP (13:59)
[2024-06-05] MEDS: SODIUM CHLORIDE 0.9% 1000 ML 1,000 ML 250 ML IV (13:59)
[2024-06-05 14:09] LABS: Anion Gap 22 (7-16); Carbon Dioxide < 10.0 mMol/L (20.0-31.0)
--- NOTE | 2024-06-05 14:26 | XR_ITS ---
Examination: AP chest single view Technique one AP portable upright chest single view Exam date and time: June 05, 2024 1502 hours Comparison May 04, 2019 INDICATIONS: Shortness of breath today. FINDINGS: Normal heart size Lungs are clear The osseous structures are intact IMPRESSION: No active disease
[2024-06-05] MEDS: INSULIN REG 100 UNITS/100 ML 100 UNIT/100 ML BAG 6.577 UNIT IV (14:38)
--- NOTE | 2024-06-05 14:42 | PC.NURSE ---
Dr. Olea and Dr. Goode at bedside to evaluate patient for admission to ICU
[2024-06-05] MEDS: INSULIN HUM REGULAR 1 UNIT/0.01 ML (PER UNIT) 8 UNIT IV (14:46)
[2024-06-05 15:22] LABS: Lactate (Lactic Acid) 2.7 mMol/L (0.4-2.0)
--- NOTE | 2024-06-05 15:39 | PC.CC ---
Patient is a 49 year-old female who presented to the hospital for feeling shakey and does not feel good. Britta OLIVER made irui-po-rxab contact with patient. ASW introduced self, role, and reason for visit. Patient appeared alert and oriented to self, location, and situation. At bedside was patient's brother Juan Baca who patient provided consent to remain in the room during initial assessment. Patient was pleasant and engaged in initial assessment. Patient confirmed information on demographics and reports she lives at home with her brother, Juan Baca and daughters. Patient reports sometimes she works in the [employer]. Per patient, prior to being admitted to the hospital she was able to complete her own ADLs and ambulate independently. Patient reports she does not use any DME. Patient receives primary care at [facility] in [place], [place]. For prescription medications the patient uses [facility] in [place], [place]. Patient shared her next of Kin is her brother Juan Baca. Upon discharge the patient plans to return home. clinical services director to follow-up with any discharge needs.
[2024-06-05 16:00] LABS: Albumin, Serum 4.4 gm/dL (3.5-5.0); Anion Gap 20 (7-16); BUN/Creatinine Ratio 12 Ratio (12-20); Blood Urea Nitrogen 13 mg/dL (9-23); Calcium 8.7 mg/dL (8.3-10.6); Calcium (Corrected) 8.7 mg/dL (8.5-10.1); Chloride 105 mMol/L (98-107); Creatinine (Component) 1.1 mg/dL (0.6-1.3); Estimated Creatinine Clearance 55.2 mL/min (>60); Lipase 29 U/L (12-53); Magnesium 1.7 mg/dL (1.6-2.6); Phosphorous 3.4 mg/dL (2.4-5.1); Potassium 4.3 mMol/L (3.4-5.1); Sodium 135 mMol/L (136-145); Troponin I < 0.020 ng/mL (0.0-0.045); eGFR > 60 See Note
[2024-06-05 16:07] LABS: Carbon Dioxide < 10.0 mMol/L (20.0-31.0); Glucose 582 mg/dL (74-106); Osmolality,Calculated 297 (275-295)
[2024-06-05] MEDS: Magnesium Sulfate 2 GM Ivpb 2 GM/50 ML BAG IV (16:20)
[2024-06-05] MEDS: POT CHL ADDITIVE 20 MEQ in RINGERS LACTATED 1000 ML 1,000 ML 250 MEQ IV (17:20)
--- NOTE | 2024-06-05 18:02 | ESHP_ITS ---
<Statement entered by Sary Merino MD - 06/09/24 09:28> TOTAL CC TIME: 35 MIN I saw and evaluated the patient. I reviewed the resident?s note and agree with findings and plan as documented in the resident?s note. Upon my evaluation, this patient had a high probability of imminent or life- threatening deterioration due to DKA/SVEN which required my direct attention, intervention, and personal management. This time is exclusive of time spent on procedures, which are documented separately if performed. IMPROVING on IVFs/insulin gtt transition to SC lantus / High dose SSI when appropriate Documentation for date of: 06/05/24 HPI History of Present Illness Chief complaint: Nausea and vomiting History of present illness: 49 y/o F with PMHx significant for diabetes presents with chief complaint nausea and vomiting x 2 days. Patient states that she ran out of her long-acting insulin 5 days ago. She started feeling ill yesterday developed vomiting in the morning. Patient went to the ER, where they prescribed her a temporary insulin pen and discharged her as she was stable at that time. However patient was unable to fill prescription due to insurance. Patient felt increasingly ill with worsening nausea and vomiting prompting return to ER. Patient notes mild epigastric pain that started after repeated episodes of vomiting. Patient denies fever, chills, shortness of breath, cough, dysuria. ED COURSE: Labs significant for: Sodium 129 (corrected sodium 138), potassium 4.9, bicarb under 10.0, BUN 11, creatinine 1.2, glucose 685, anion gap 22, A1c 9.7%. VBG showing pH 7.22, pCO2 15, pO2 57, base excess -19. Beta hydroxybutyrate 6.1. Lactic acid 2.7. WBC 16.1. Significant for: Chest x-ray unremarkable. Patient received 2 L normal saline bolus in ED. ICU was consulted for DKA, patient admitted to ICU. Review of Systems Review of Systems Systems Reviewed: All systems reviewed, normal except as documented Exam Vital Signs Temp Pulse Resp BP Pulse Ox O2 Del Method 99.2 F 120 H 20 103/62 98 Room Air 06/05/24 16:02 06/05/24 17:26 06/05/24 17:26 06/05/24 17:26 06/05/24 17:26 06/05/24 17:26 Narrative Exam PE: Gen: Well-developed and well-nourished. Ill-appearing. HEENT: NCAT, PERRLA, EOMI, anicteric conjunctivae. Dry mucous membranes. CVS: normal S1 and S2. RRR. No M/R/G. Resp: CTA B/L. No rhonchi, rales, crackles or wheezing. Abd: soft, non-distended. Mild epigastric tenderness. MSK: Good ROM in BUE & BLE. No edema or rash. Dry skin bilateral feet. Neuro: CN II-XII grossly intact. Strength 5/5 in BUE & BLE. Alert and oriented x3. Results: Labs 06/05/24 12:36 06/05/24 15:16 Labs: Short CBC 06/05/24 Range/Units 12:36 WBC 16.1 H D (3.6-11.0) Thou/mm3 Hgb 12.8 (12.0-16.0) g/dL Hct 37.9 (36.0-46.0) % Plt Count 281 D (140-440) Thou/mm3 BMP 06/05/24 06/05/24 12:36 15:16 Sodium 129 L 135 L Potassium 4.9 D 4.3 D Chloride 97 L 105 Carbon Dioxide < 10.0 L* < 10.0 L* BUN 11 13 Creatinine 1.2 1.1 Glucose 685 H* D 582 H* D Calcium 9.5 8.7 Cardiac Enzymes 06/05/24 Range/Units 15:16 Troponin I < 0.020 (0.0-0.045) ng/mL Liver Function 06/05/24 06/05/24 Range/Units 12:36 15:16 Total Bilirubin 0.4 (0.3-1.2) mg/dL AST 17 (0-34) U/L ALT 13 (10-49) U/L Alkaline Phosphatase 136 H (46-116) U/L Albumin 4.6 4.4 (3.5-5.0) gm/dL ABG Interpretation ABG results: 06/05/24 12:36 VBG pH 7.22 L VBG pCO2 15 L D VBG pO2 57 D VBG Base Excess -19 L Quality Measures Quality Measures VTE prophylaxis Medications Home Medications and Allergies Home Medications ?Medication ?Instructions ?Recorded ?Confirmed ?Type insulin detemir U-100 100 unit/mL 35 unit subcut HS 06/05/24 06/05/24 History subcutaneous solution (Levemir U-100 Insulin) insulin glulisine U-100 100 See Rx Instructions .Route .COMPLEX 06/05/24 06/05/24 History unit/mL subcutaneous pen (Apidra SoloStar U-100 Insulin) semaglutide 1 mg/dose (4 mg/3 mL) 1 mg subcut QWEEK 06/05/24 06/05/24 History subcutaneous pen injector (Ozempic) Allergies Allergy/AdvReac Type Severity Reaction Status Date / Time No Known Allergies Allergy Verified 06/05/24 11:29 Visit Medications Acetaminophen (Acetaminophen 325 Mg Tablet) 650 mg PO Q4HR PRN PRN Reason: PAIN SCALE 1-3 (mild Stop: 07/05/24 14:25 Acetaminophen (Acetaminophen Supp 650 Mg Supp) 650 mg TX Q4HR PRN PRN Reason: PAIN SCALE 1-3 (mild Stop: 07/05/24 14:25 Al Hydrox/Mg Hydrox/Simethicone (Mg Hyd/Al Hyd/Tim (Maalox Reg) Susp 30 Ml Udc) 30 ml PO Q4HR PRN PRN Reason: Heartburn or Upset Stomach Stop: 07/05/24 14:25 Dextrose (Dextrose 50%-Water Inj 50 Ml Syringe) 25 ml IV [id number] PRN PRN Reason: Blood Sugar - Low Enoxaparin Sodium (Enoxaparin Sod Inj 40 Mg/0.4 Ml Syringe) 40 mg SC QDAY [facility] Stop: 06/20/24 08:59 Insulin Human Regular (Myxredlin) 100 unit in 100 mls @ 6.577 mls/hr IV .[id number] PRN; Protocol PRN Reason: PER PROTOCOL Stop: 07/05/24 14:08 Last Titration: 06/05/24 15:38 Dose: 0.1 unit/kg/hr, 6.577 mls/hr Potassium Chloride (Kcl Ivpb) 10 meq in 100 mls @ 100 mls/hr IV .Q1H PRN PRN Reason: IF POTASSIUM LESS THAN 3.3 Stop: 07/05/24 14:25 Magnesium Sulfate (Magnesium Sulfate Ivpb) 2 gm in 50 mls @ 25 mls/hr IV .Q2H PRN PRN Reason: PER DKA PROTOCOL Stop: 07/05/24 14:25 Last Admin: 06/05/24 16:20 Dose: 25 mls/hr Dextrose/Lactated Ringer's (D5-Lr) 1,000 mls @ 250 mls/hr IV .Q4H PRN PRN Reason: PER PROTOCOL Stop: 07/05/24 14:25 Lactated Ringer's (Lactated Ringers) 1,000 mls @ 250 mls/hr IV .Q4H PRN PRN Reason: PER PROTOCOL Stop: 06/06/24 14:25 Potassium Chloride 20 meq/ (Lactated Ringer's) 1,010 mls @ 250 mls/hr IV .Q4H3M PRN PRN Reason: K LEVEL 3.3 TO 5.3mM/L Stop: 07/05/24 14:25 Last Admin: 06/05/24 17:20 Dose: 250 mls/hr Potassium Chloride 40 meq/ (Lactated Ringer's) 1,020 mls @ 250 mls/hr IV .Q4H5M PRN PRN Reason: K LEVEL < 3.3 mM/L Stop: 07/05/24 14:25 Potassium Chloride 40 meq/ (Dextrose/Lactated Ringer's) 1,020 mls @ 250 mls/hr IV .Q4H5M PRN PRN Reason: K LEVEL < 3.3mM/L Stop: 07/05/24 14:25 Potassium Cl/Dextrose/Lact Ringer's (Kcl 20 Meq/L In D5-Lr) 20 meq in 1,000 mls @ 250 mls/hr IV .Q4H PRN PRN Reason: K LEVEL 3.3 TO 5.3 mM/L Stop: 07/05/24 14:25 Potassium Chloride (Kcl Ivpb) 10 meq in 100 mls @ 50 mls/hr IV PRN PRN PRN Reason: K LEVEL 3.3 to 5.3 & BG > 200 Stop: 07/05/24 14:25 Potassium Phosphate (Pot Phos 15 Mmol In Ns 250 Ml) 15 mmol in 250 mls @ 62.5 mls/hr IV PRN PRN PRN Reason: Phosphate <= 1mg/dL Stop: 07/05/24 14:25 Sodium Phosphate 15 mmol/ (Sodium Chloride) 255 mls @ 62.5 mls/hr IV .Q4H5M PRN PRN Reason: Phosphate <= 1mg/dL and K> than 5.3 Stop: 07/05/24 14:25 Magnesium Hydroxide (Milk Of Magnesia Susp 30 Ml Udc) 30 ml PO QDAY PRN PRN Reason: CONSTIPATION Stop: 07/05/24 14:25 Nitroglycerin (Nitroglycerin 0.4 Mg Subl Btl #25) 0.4 mg SL Q5MIN PRN PRN Reason: CHEST PAIN Ondansetron HCl (Ondansetron Inj 2 Mg/Ml Inj 2 Ml) 4 mg IV Q6HR PRN PRN Reason: NAUSEA OR VOMITING Stop: 07/05/24 14:25 Sodium Bicarbonate (Sodium Bicarb Inj 8.4% Syr 50 Ml Syringe) 50 ml IV PRN PRN PRN Reason: For ph <= to 7.0 Stop: 07/05/24 14:25 Discontinued Medications Sodium Chloride (Ns) 1,000 mls @ 999 mls/hr IV .Q1H1M ONE Stop: 06/05/24 13:07 Last Infusion: 06/05/24 15:00 Dose: Infused Sodium Chloride (Ns) 1,000 mls @ 999 mls/hr IV .Q1H1M ONE Stop: 06/05/24 13:50 Last Infusion: 06/05/24 15:00 Dose: Infused Sodium Chloride (Ns) 1,000 mls @ 250 mls/hr IV .Q4H WANDA Stop: 06/06/24 13:18 Last Admin: 06/05/24 13:59 Dose: 250 mls/hr Dextrose/Lactated Ringer's (D5-Lr) 1,000 mls @ 250 mls/hr IV .Q4H PRN PRN Reason: PER PROTOCOL Stop: 07/05/24 15:07 Lactated Ringer's (Lactated Ringers) 1,000 mls @ 250 mls/hr IV .Q4H PRN PRN Reason: PER PROTOCOL Stop: 06/06/24 15:07 Insulin Human Regular (Insulin Hum Regular 1 Unit/0.01 Ml (Per Unit)) 8 unit IV X1 ONE Stop: 06/05/24 14:27 Last Admin: 06/05/24 14:46 Dose: 8 unit Metoclopramide HCl (Metoclopramide Inj 5 Mg/Ml Vial 2 Ml) 5 mg IVP X1 ONE; Protocol Stop: 06/05/24 13:48 Last Admin: 06/05/24 13:59 Dose: 5 mg Ondansetron HCl (Ondansetron Inj 2 Mg/Ml Inj 2 Ml) 4 mg IV X1 ONE; Protocol Stop: 06/05/24 12:08 Last Admin: 06/05/24 13:02 Dose: 4 mg Ondansetron HCl (Ondansetron Inj 2 Mg/Ml Inj 2 Ml) 4 mg IV X1 ONE; Protocol Stop: 06/05/24 12:51 Last Admin: 06/05/24 14:08 Dose: Not Given Assessment & Plan Plan 49 y/o F with PMHx significant for diabetes presents with chief complaint nausea and vomiting x 2 days, admitted to ICU for DKA. Neuro: No active issues. Cardio: #Tachycardia DDx: Reactive to patient discomfort vs. dehydration vs. infection Patient sinus tachycardia 100?120. Patient is no history of cardiac disease. Patient is in severe discomfort due to nausea and vomiting. Patient also appears dehydrated on exam, likely due to combination of DKA and vomiting. Patient has elevated white blood cell count 16.1, possibility of underlying infection. Troponin negative, EKG unremarkable. -night monitor -Evaluate possible infection -Fluid resuscitation as per DKA protocol Pulm: No active issues. GI: #Emesis secondary to DKA Patient developed nausea and vomiting shortly after running out of long-acting insulin. On admission patient labs confirmed DKA. -Treat underlying DKA -Zofran 4 mg IV every 6 hours as needed for nausea/vomiting -Protonix 40 mg IV daily Renal: No active issues. Endo: #DKA Patient presents with nausea/vomiting shortly after running out of her long- acting insulin. On admission labs showed: Glucose 65, beta hydroxybutyrate 6.1, VBG showing pH 7.22, pCO2 15, pO2 57. Bicarb under 10.0. Patient received 2 L bolus normal saline in the ED. Patient given 8 units regular insulin and started on insulin drip as per DKA protocol. -IVF as per protocol -Insulin drip as per protocol -Electrolyte monitoring and replacement as per protocol -Every hour bedside blood sugar checks -N.p.o. -Labs every 4 hours: CMP, CBC, lactate, renal function, magnesium, phosphorus -Evaluate for potential underlying infection: Blood cultures pending Heme/Onc: No active issues. ID: No active issues. DVT prophylaxis: Lovenox GI prophylaxis: Protonix Diet: N.p.o. Lines: Peripheral IV Code status: Full code Plan of care discussed with attending Dr. Merino. Juventino Goode MD PGY-1
[2024-06-05 18:20] LABS: Reflex Lactate? Y
[2024-06-05] MEDS: KCL 20 mEq/L in D5-LR 20 MEQ/1,000 ML BAG 250 MEQ IV ×2 (19:16→23:35)
[2024-06-05 20:27] LABS: Lactate (Lactic Acid) 1.8 mMol/L (0.4-2.0)
[2024-06-05 20:59] LABS: Albumin, Serum 4.3 gm/dL (3.5-5.0); Anion Gap 16 (7-16); BUN/Creatinine Ratio 12 Ratio (12-20); Blood Urea Nitrogen 11 mg/dL (9-23); Calcium 8.7 mg/dL (8.3-10.6); Calcium (Corrected) 8.7 mg/dL (8.5-10.1); Chloride 111 mMol/L (98-107); Creatinine (Component) 0.9 mg/dL (0.6-1.3); Estimated Creatinine Clearance 67.4 mL/min (>60); Glucose 189 mg/dL (74-106); Magnesium 2.1 mg/dL (1.6-2.6); Osmolality,Calculated 281 (275-295); Phosphorous 1.9 mg/dL (2.4-5.1); Potassium 4.7 mMol/L (3.4-5.1); Sodium 139 mMol/L (136-145); eGFR > 60 See Note
[2024-06-05 21:17] LABS: Carbon Dioxide 11.8 mMol/L (20.0-31.0)
[2024-06-06] VITALS (15 sets, daily range): BP systolic 94–134; BP diastolic 57–90; PULSE 74–115; RESP 7–98; TEMP 36.5–37.1; O2SAT 93–99; BMI 25.8
[2024-06-06 00:29] LABS: Lactate (Lactic Acid) 0.6 mMol/L (0.4-2.0)
[2024-06-06 00:54] LABS: Albumin, Serum 3.8 gm/dL (3.5-5.0); Anion Gap 8 (7-16); BUN/Creatinine Ratio 11 Ratio (12-20); Blood Urea Nitrogen 9 mg/dL (9-23); Calcium 8.9 mg/dL (8.3-10.6); Calcium (Corrected) 9.1 mg/dL (8.5-10.1); Carbon Dioxide 17.5 mMol/L (20.0-31.0); Chloride 114 mMol/L (98-107); Creatinine (Component) 0.8 mg/dL (0.6-1.3); Estimated Creatinine Clearance 75.8 mL/min (>60); Glucose 175 mg/dL (74-106); Osmolality,Calculated 280 (275-295); Phosphorous 1.2 mg/dL (2.4-5.1); Potassium 4.2 mMol/L (3.4-5.1); Sodium 139 mMol/L (136-145); eGFR > 60 See Note
[2024-06-06] MEDS: KCL 20 mEq/L in D5-LR 20 MEQ/1,000 ML BAG 250 MEQ IV (04:12)
[2024-06-06 04:43] LABS: Lactate (Lactic Acid) 0.7 mMol/L (0.4-2.0)
[2024-06-06 04:52] LABS: Basophils % (Auto) 0 % (0-2.5); Eosinophils % (Auto) 0 % (0-10); Hematocrit 31.1 % (36.0-46.0); Immature Granulocytes % (Auto) 0 % (0-0); Immature Granulocytes Auto 0.03 Thou/mm3 (0.00-0.00); Lymphocytes # (Auto) 2.5 Thou/mm3 (1.0-4.8); Lymphocytes % (Auto) 24 % (10-50); Mean Corpuscular HGB Conc 35.4 g/dl (31.0-37.0); Mean Corpuscular Volume 93 fL (80-100); Monocytes # (Auto) 0.9 Thou/mm3 (0.0-0.8); Monocytes % (Auto) 9 % (0-12); Neutrophils % (Auto) 67 % (37-80); Nucleated Red Blood Cell % 0 /100 WBC (0); Platelet Count 212 Thou/mm3 (140-440); RDW Standard Deviation 49.3 fL (36.4-46.3); Red Blood Count 3.33 Miln/mm3 (4.00-5.20); White Blood Count 10.4 Thou/mm3 (3.6-11.0)
[2024-06-06 05:19] LABS: Alanine Aminotransferase 14 U/L (10-49); Albumin, Serum 3.7 gm/dL (3.5-5.0); Albumin/Globulin Ratio 1.6 (1.2-2.2); Alkaline Phosphatase 107 U/L (46-116); Anion Gap 8 (7-16); Aspartate Amino Transferase 13 U/L (0-34); BUN/Creatinine Ratio 10 Ratio (12-20); Bilirubin,Total 0.3 mg/dL (0.3-1.2); Blood Urea Nitrogen 7 mg/dL (9-23); Calcium 8.6 mg/dL (8.3-10.6); Calcium (Corrected) 8.8 mg/dL (8.5-10.1); Carbon Dioxide 18.8 mMol/L (20.0-31.0); Chloride 114 mMol/L (98-107); Creatinine (Component) 0.7 mg/dL (0.6-1.3); Estimated Creatinine Clearance 86.7 mL/min (>60); Globulin 2.3 gm/dL (2.3-3.5); Glucose 147 mg/dL (74-106); Osmolality,Calculated 282 (275-295); Phosphorous 1.6 mg/dL (2.4-5.1); Sodium 141 mMol/L (136-145); eGFR > 60 See Note
[2024-06-06 07:40] LABS: Lactate (Lactic Acid) 0.7 mMol/L (0.4-2.0)
[2024-06-06 07:49] LABS: Beta Hydroxybutyrate 0.5 mmol/L (<0.6)
[2024-06-06] MEDS: PANTOPRAZOLE INJ 40 MG VIAL IV (08:00)
[2024-06-06] MEDS: INSULIN GLARGINE (Lantus) 5 UNIT/0.05 ML (PER 5 UNITS) 35 UNIT SC (08:00)
[2024-06-06] MEDS: ENOXAPARIN SOD INJ 40 MG/0.4 ML SYRINGE SC (08:00)
[2024-06-06 08:08] LABS: Albumin, Serum 3.7 gm/dL (3.5-5.0); Anion Gap 8 (7-16); BUN/Creatinine Ratio 10 Ratio (12-20); Blood Urea Nitrogen 7 mg/dL (9-23); Calcium 8.7 mg/dL (8.3-10.6); Calcium (Corrected) 8.9 mg/dL (8.5-10.1); Carbon Dioxide 19.4 mMol/L (20.0-31.0); Chloride 114 mMol/L (98-107); Creatinine (Component) 0.7 mg/dL (0.6-1.3); Estimated Creatinine Clearance 86.9 mL/min (>60); Glucose 137 mg/dL (74-106); Osmolality,Calculated 281 (275-295); Phosphorous 1.8 mg/dL (2.4-5.1); Potassium 3.9 mMol/L (3.4-5.1); Sodium 141 mMol/L (136-145); eGFR > 60 See Note
[2024-06-06] MEDS: INSULIN LISPRO (AdmeLOG) 1 UNIT/0.01 ML UNIT SC ×2 (12:13→20:07)
--- NOTE | 2024-06-06 13:30 | EVENTNT_ITS ---
<Statement entered by Marin Perla MD - 06/07/24 12:27> I have discussed and was present for the essential components of the history, physical examination, diagnosis, and treatment plan with the resident. I agree with the patient's care as documented by the resident and amended herein by me. Marin Perla MD. Documentation for date of: 06/06/24 Event Note Event Note: Patient is a 49-year-old female with a past medical history significant for insulin-dependent diabetes mellitus type 2 [9.7]. Presented 06/05 with a chief complaint of nausea and multiple episodes for the past 2 days. Of note she ran out of her long-acting insulin 5 days ago and was unable to get it refilled due to insurance issues. On admission anion gap was 22, pH 7.3, <10, pCO2 15 and blood glucose 635. Patient was admitted to the ICU for DKA management with insulin infusion, IV fluids, IV potassium. Patient's anion gap has now closed, her blood glucose is now 250 and her mentation is back to baseline. Patient is clinically stable for downgrade to the floor on 06/07. Plan of care discussed with Attending Dr. Perla and PGY2 Dr. Anish Rangel MD PGY 1
--- NOTE | 2024-06-06 13:37 | ESPR_ITS ---
Documentation for date of: 06/06/24 Subjective Subjective Interval history: 49 y/o F with PMHx significant for diabetes presents with chief complaint nausea and vomiting x 2 days. Patient states that she ran out of her long-acting insulin 5 days ago. She started feeling ill yesterday developed vomiting in the morning. Patient went to the ER, where they prescribed her a temporary insulin pen and discharged her as she was stable at that time. However patient was unable to fill prescription due to insurance. Patient felt increasingly ill with worsening nausea and vomiting prompting return to ER. Patient notes mild epigastric pain that started after repeated episodes of vomiting. Patient denies fever, chills, shortness of breath, cough, dysuria. ED COURSE: Labs significant for: Sodium 129 (corrected sodium 138), potassium 4.9, bicarb under 10.0, BUN 11, creatinine 1.2, glucose 685, anion gap 22, A1c 9.7%. VBG showing pH 7.22, pCO2 15, pO2 57, base excess -19. Beta hydroxybutyrate 6.1. Lactic acid 2.7. WBC 16.1. Significant for: Chest x-ray unremarkable. Patient received 2 L normal saline bolus in ED. ICU was consulted for DKA, patient admitted to ICU. 06/06/2024: Patient seen and examined in ICU. Patient resting comfortably in bed, denies nausea, vomiting, weakness, lethargy. Patient expresses appetite, was given carb consistent diet, tolerated oral intake well. Anion gap closed overnight with multiple draws. Patient has developed mild hyperchloremic acidosis: Chloride 114, bicarb 19.4. Suspect due to large amounts of saline given in the ED. Patient transition to subcu insulin. Patient stable for downgrade to medical floors. Exam Vital Signs Temp Pulse Resp BP Pulse Ox O2 Del Method 98.5 F 74 16 96/66 98 Room Air 06/06/24 08:00 06/06/24 11:36 06/06/24 11:36 06/06/24 10:00 06/06/24 10:00 06/06/24 10:00 Narrative Exam PE: Gen: Well-developed and well-nourished. HEENT: NCAT, PERRLA, EOMI, anicteric conjunctivae. Dry mucous membranes, improved from yesterday. CVS: normal S1 and S2. RRR. No M/R/G. Resp: CTA B/L. No rhonchi, rales, crackles or wheezing. Abd: soft, non-distended. Nontender. MSK: Good ROM in BUE & BLE. No edema or rash. Dry skin bilateral feet. Neuro: CN II-XII grossly intact. Strength 5/5 in BUE & BLE. Alert and oriented x3. Objective Labs 06/06/24 04:24 06/06/24 07:15 Labs: Laboratory Results - last 24 hr 06/05/24 06/05/24 06/05/24 12:36 15:16 19:56 WBC RBC Hgb Hct MCV MCH MCHC RDW Std Deviation Plt Count Neut % (Auto) Lymph % (Auto) [place] % (Auto) Eos % (Auto) Baso % (Auto) Neut # (Auto) Lymph # (Auto) [place] # (Auto) Eos # (Auto) Baso # (Auto) Immature Gran # (Auto) Absolute Nucleated RBC Immature Gran % Nucleated RBC % Sodium 129 L 135 L 139 Potassium 4.9 D 4.3 D 4.7 Chloride 97 L 105 111 H Carbon Dioxide < 10.0 L* < 10.0 L* 11.8 L* Anion Gap 22 H 20 H 16 BUN 11 13 11 Creatinine 1.2 1.1 0.9 Estim Creat Clear Calc 50.6 L 55.2 L 67.4 eGFR 55 L > 60 > 60 BUN/Creatinine Ratio 9 L 12 12 Glucose 685 H* D 582 H* D 189 H D Calculated Osmolality 291 297 H 281 Lactic Acid 2.7 H 1.8 Calcium 9.5 8.7 8.7 Corrected Calcium 9.5 8.7 8.7 Phosphorus 3.4 1.9 L Magnesium 1.8 1.7 2.1 Total Bilirubin 0.4 AST 17 ALT 13 Alkaline Phosphatase 136 H Troponin I < 0.020 Total Protein 7.4 Albumin 4.6 4.4 4.3 Globulin 2.8 Albumin/Globulin Ratio 1.6 Lipase 29 Beta-Hydroxybutyrate/Acetoacetate 06/06/24 06/06/24 06/06/24 00:04 04:24 07:15 WBC 10.4 D RBC 3.33 L Hgb 11.0 L Hct 31.1 L MCV 93 MCH 33.0 MCHC 35.4 RDW Std Deviation 49.3 H Plt Count 212 D Neut % (Auto) 67 Lymph % (Auto) 24 [place] % (Auto) 9 Eos % (Auto) 0 Baso % (Auto) 0 Neut # (Auto) 7.0 Lymph # (Auto) 2.5 [place] # (Auto) 0.9 H Eos # (Auto) 0.0 Baso # (Auto) 0.0 Immature Gran # (Auto) 0.03 H Absolute Nucleated RBC 0.00 Immature Gran % 0 Nucleated RBC % 0 Sodium 139 141 141 Potassium 4.2 D 4.0 3.9 Chloride 114 H 114 H 114 H Carbon Dioxide 17.5 L 18.8 L 19.4 L Anion Gap 8 8 8 BUN 9 7 L 7 L Creatinine 0.8 0.7 0.7 Estim Creat Clear Calc 75.8 86.7 86.9 eGFR > 60 > 60 > 60 BUN/Creatinine Ratio 11 L 10 L 10 L Glucose 175 H 147 H 137 H Calculated Osmolality 280 282 281 Lactic Acid 0.6 0.7 0.7 Calcium 8.9 8.6 Corrected Calcium 9.1 8.8 Phosphorus 1.2 L 1.6 L Magnesium 2.0 2.0 Total Bilirubin 0.3 AST 13 ALT 14 Alkaline Phosphatase 107 D Troponin I Total Protein 6.0 Albumin 3.8 D 3.7 Globulin 2.3 Albumin/Globulin Ratio 1.6 Lipase Beta-Hydroxybutyrate/Acetoacetate 06/06/24 07:15 WBC RBC Hgb Hct MCV MCH MCHC RDW Std Deviation Plt Count Neut % (Auto) Lymph % (Auto) [place] % (Auto) Eos % (Auto) Baso % (Auto) Neut # (Auto) Lymph # (Auto) [place] # (Auto) Eos # (Auto) Baso # (Auto) Immature Gran # (Auto) Absolute Nucleated RBC Immature Gran % Nucleated RBC % Sodium Potassium Chloride Carbon Dioxide Anion Gap BUN Creatinine Estim Creat Clear Calc eGFR BUN/Creatinine Ratio Glucose Calculated Osmolality Lactic Acid Cancelled Calcium 8.7 Corrected Calcium 8.9 Phosphorus 1.8 L Magnesium Total Bilirubin AST ALT Alkaline Phosphatase Troponin I Total Protein Albumin 3.7 Globulin Albumin/Globulin Ratio Lipase Beta-Hydroxybutyrate/Acetoacetate 0.5 ABG Interpretation ABG results: 06/05/24 12:36 VBG pH 7.22 L VBG pCO2 15 L D VBG pO2 57 D VBG Base Excess -19 L Quality Measures Quality Measures VTE prophylaxis Assessment & Plan Assessment Current Active Medications: Generic Name Dose Route Start Last Admin Trade Name Freq PRN Reason Stop Dose Admin Acetaminophen 650 mg 06/05/24 14:26 Acetaminophen 325 Mg Tablet PO 07/05/24 14:25 Q4HR PRN PAIN SCALE 1-3 (mild Acetaminophen 650 mg 06/05/24 14:26 Acetaminophen Supp 650 Mg Supp W[place] 07/05/24 14:25 Q4HR PRN PAIN SCALE 1-3 (mild Dextrose 25 ml 06/06/24 09:59 Dextrose 50%-Water Inj 50 Ml Syringe IV 07/06/24 09:58 Q15MIN PRN BG 50-70 responsive npo pt Dextrose 50 ml 06/06/24 09:59 Dextrose 50%-Water Inj 50 Ml Syringe IV 07/06/24 09:58 Q15MIN PRN BG <50 OR BG <70 & pt unresponsive Enoxaparin Sodium 40 mg 06/06/24 09:00 06/06/24 08:00 Enoxaparin Sod Inj 40 Mg/0.4 Ml Syringe SC 06/20/24 08:59 40 mg QDAY [facility] Administration Glucagon 1 mg 06/06/24 09:59 Glucagon Inj 1 Mg Vial IM Q15MIN PRN BG <70, and no IV access Insulin Glargine 35 unit 06/07/24 09:00 Insulin Glargine (Lantus) 5 Unit/0.05 Ml (Per 5 Units) SC 07/07/24 08:59 QDAY [facility] Insulin Human Lispro 0 unit 06/06/24 11:30 06/06/24 12:13 Insulin Lispro (Admelog) 1 Unit/0.01 Ml Unit SC 07/06/24 11:29 10 unit ACHS [facility] Administration Protocol Magnesium Hydroxide 30 ml 06/05/24 14:26 Milk Of Magnesia Susp 30 Ml Udc PO 07/05/24 14:25 QDAY PRN CONSTIPATION Pantoprazole Sodium 40 mg 06/06/24 09:00 06/06/24 08:00 Pantoprazole Inj 40 Mg Vial IV 07/06/24 08:59 40 mg QDAY [facility] Administration Plan 49 y/o F with PMHx significant for diabetes presents with chief complaint nausea and vomiting x 2 days, admitted to ICU for DKA. Neuro: No active issues. Cardio: #Tachycardia-resolved DDx: Reactive to patient discomfort vs. dehydration vs. infection Patient sinus tachycardia 100?120. Patient is no history of cardiac disease. Patient is in severe discomfort due to nausea and vomiting. Patient also appears dehydrated on exam, likely due to combination of DKA and vomiting. Patient has elevated white blood cell count 16.1, possibility of underlying infection. Troponin negative, EKG unremarkable. Condition resolved with resolution of DKA -No further action at this time Pulm: No active issues. GI: #Emesis secondary to DKA-resolved Patient developed nausea and vomiting shortly after running out of long-acting insulin. On admission patient labs confirmed DKA. Condition resolved with resolution of DKA -Zofran 4 mg IV every 6 hours as needed for nausea/vomiting -Protonix 40 mg IV daily Renal: #Hyperchloremic acidosis DDx: Excessive saline infusion Patient was acidotic on admission, due to DKA. Overnight DKA has resolved, the patient maintains non-anion gap metabolic acidosis. Serum chloride 114, serum bicarb 19.4. Patient received 3 L normal saline. IV fluids discontinued, patient on p.o. diet. -Monitor for resolution Endo: #DKA-resolved #Insulin-dependent diabetes Patient presents with nausea/vomiting shortly after running out of her long- acting insulin. On admission labs showed: Glucose 65, beta hydroxybutyrate 6.1, VBG showing pH 7.22, pCO2 15, pO2 57. Bicarb under 10.0. Patient received 2 L bolus normal saline in the ED. Patient given 8 units regular insulin and started on insulin drip as per DKA protocol. Patient showed significant improvement overnight. Anion gap closed on repeat draws. Patient denies nausea, vomiting, lethargy, weakness. Patient transition from insulin drip to subcu insulin, given carb consistent renal diet which was tolerated well. -Insulin glargine 35 units subcu daily -ISS -Evaluate for potential underlying infection: Blood cultures pending -Downgrade to medical floors Heme/Onc: No active issues. ID: No active issues. DVT prophylaxis: Lovenox GI prophylaxis: Protonix Diet: Carb consistent low Lines: Peripheral IV Code status: Full code Plan of care discussed with attending Dr. Ortega. Juventino Goode MD PGY-1 Attending Provider Attestation/Addendum Patient seen and examined with resident. Generally agree with above. In brief this is a 49-year-old female admitted to the ICU for DKA. Apparently she had run out of her long-acting insulin at home. She was started on DKA protocol with labs obtained every 4 hours. Her anion gap closed and she was transitioned to subcutaneous insulin. She was tolerating p.o. She was stable and appropriate for downgrade. A little bit of residual hyperchloremic acidosis did persist. Case discussed with ICU team Labs, imaging and records reviewed Approximately 36 minutes required for evaluation, exam, review, intervention, discussion and formulation of plan of care this 49-year-old female with DKA
--- NOTE | 2024-06-06 16:13 | PC.DIETICIAN ---
Nutrition Education (DKA; A1C=9.6): Patient was educated on dietary management of diabetes; written material was provided for future reference. *Consider prescribing a [employer] 2 + Crystal prior to discharge.
[2024-06-07] VITALS: BP 120/78; PULSE 89; RESP 16; TEMP 36.7; O2SAT 98
[2024-06-07 04:00] VITALS: BP 109/69; PULSE 94; RESP 16; TEMP 36.4; O2SAT 98
[2024-06-07 06:00] VITALS: BMI 27.3
[2024-06-07 06:05] LABS: Alanine Aminotransferase 14 U/L (10-49); Albumin, Serum 3.9 gm/dL (3.5-5.0); Albumin/Globulin Ratio 1.6 (1.2-2.2); Alkaline Phosphatase 110 U/L (46-116); Anion Gap 10 (7-16); Aspartate Amino Transferase 17 U/L (0-34); BUN/Creatinine Ratio 10 Ratio (12-20); Bilirubin,Total 0.5 mg/dL (0.3-1.2); Blood Urea Nitrogen < 5 mg/dL (9-23); Calcium 8.8 mg/dL (8.3-10.6); Calcium (Corrected) 8.9 mg/dL (8.5-10.1); Carbon Dioxide 24.3 mMol/L (20.0-31.0); Chloride 106 mMol/L (98-107); Creatinine (Component) 0.5 mg/dL (0.6-1.3); Estimated Creatinine Clearance 118.8 mL/min (>60); Globulin 2.4 gm/dL (2.3-3.5); Glucose 57 mg/dL (74-106); Osmolality,Calculated 274 (275-295); Potassium 3.5 mMol/L (3.4-5.1); Sodium 140 mMol/L (136-145); Total Protein 6.3 gm/dL (5.7-8.2); eGFR > 60 See Note
[2024-06-07 06:52] VITALS: PULSE 85; RESP 16; RESP 94
[2024-06-07 07:10] LABS: Basophils % (Auto) 0 % (0-2.5); Eosinophils # (Auto) 0.1 Thou/mm3 (0.0-0.5); Eosinophils % (Auto) 1 % (0-10); Hematocrit 31.8 % (36.0-46.0); Hemoglobin 11.4 g/dL (12.0-16.0); Immature Granulocytes % (Auto) 0 % (0-0); Lymphocytes # (Auto) 2.6 Thou/mm3 (1.0-4.8); Lymphocytes % (Auto) 40 % (10-50); Mean Corpuscular HGB Conc 35.8 g/dl (31.0-37.0); Mean Corpuscular Hemoglobin 33.1 pg (25.0-35.0); Mean Corpuscular Volume 92 fL (80-100); Monocytes # (Auto) 0.5 Thou/mm3 (0.0-0.8); Monocytes % (Auto) 8 % (0-12); Neutrophils # (Auto) 3.2 Thou/mm3 (1.8-7.7); Neutrophils % (Auto) 51 % (37-80); Nucleated Red Blood Cell % 0 /100 WBC (0); Platelet Count 221 Thou/mm3 (140-440); RDW Standard Deviation 48.1 fL (36.4-46.3); Red Blood Count 3.44 Miln/mm3 (4.00-5.20); White Blood Count 6.4 Thou/mm3 (3.6-11.0)
[2024-06-07 07:52] VITALS: BP 115/85; PULSE 90; RESP 17; TEMP 36.7; O2SAT 99
[2024-06-07 09:52] LABS: Magnesium 1.9 mg/dL (1.6-2.6)
[2024-06-07] MEDS: ENOXAPARIN SOD INJ 40 MG/0.4 ML SYRINGE SC (10:39)
[2024-06-07] MEDS: PANTOPRAZOLE INJ 40 MG VIAL IV (10:39)
[2024-06-07] MEDS: INSULIN LISPRO (AdmeLOG) 1 UNIT/0.01 ML UNIT SC (11:38)
[2024-06-07 11:45] VITALS: BP 133/82; PULSE 82; RESP 17; TEMP 36.3; O2SAT 99
--- NOTE | 2024-06-07 11:56 | ESDS_ITS ---
<Statement entered by Marin Perla MD - 06/07/24 17:03> I have discussed and was present for the essential components of the history, physical examination, diagnosis, and treatment plan with the resident. I agree with the patient's care as documented by the resident and amended herein by me. Marin Perla MD. <Statement entered by Fili Oconnell MD - 06/07/24 14:12> I saw and examined the patient, and I agree with current management stated by Dr Jennifer MD,PGY1. Plan of care was discussed with the attending physician and resident physician. Disclaimer: Despite multiple revisions, due to the dictation software being used, the document bellow may not be free of grammatical errors including phonetic/typographic errors. However, this does not deter from our commitment to providing health care in the patient's best interest in mind. Dr. Anish MD, PGY 2 Planned Discharge Date 06/07/24 DS: Providers Provider Date of admission: 06/05/24 14:26 Primary care physician: Physician No Primary/Family Admitting Provider: Sary Merino MD Attending Provider on Admission: aMrin Perla MD Attending Provider on DC: Gricel Rodriguez MD Discharging Provider: Grciel Rodriguez MD DS: Diagnosis Problem List Completed Was Problem List Reviewed/Reconciled?: Yes Hospital Course Hospital Course Hospital course: Overview: Patient is a 49-year-old female with past medical history of diabetes mellitus type 2 insulin-dependent and hyperlipidemia who was admitted directly into the ICU on 06/05/2024 secondary to DKA and hyperemesis. ER Course: Labs significant for: Sodium 129 (corrected sodium 138), potassium 4.9, bicarb under 10.0, BUN 11, creatinine 1.2, glucose 685, anion gap 22, A1c 9.7%. VBG showing pH 7.22, pCO2 15, pO2 57, base excess -19. Beta hydroxybutyrate 6.1. Lactic acid 2.7. WBC 16.1. Significant for: Chest x-ray unremarkable. Patient received 2 L normal saline bolus in ED. ICU was consulted for DKA, patient admitted to ICU. Hospital Course: Patient was downgraded from ICU on to floors on 06/07/2024 under the care of internal medicine team after hand anion gap had closed. Patient experienced a syncopal episode for hypoglycemic with a blood glucose of 57 which is corrected after drinking orange juice. Bedside glucose post reading 129. Lantus 35 units decreased to 20 units at bedtime hospital. Patient stated she did lose about 40 pounds since starting Ozempic and has not been able to follow-up with her PCP as he recently moved. She was scheduled with a new PCP to establish care on 06/07/2024 but given hospitalization will have to reschedule. Normocytic anemia with a hemoglobin of 11.4 and hematocrit of 31.8 MCV 92 (06/07/2024), please follow-up patient for anemia. A1c (06/04/2024) 9.7 elevated. Instructions: Take all medications as prescribed Use [employer] cydney 2 for monitoring blood sugars Follow-up with PCP as outpatient in 2 weeks In case of emergency, call 911 and come back to the ED Disposition: Home Diabetes Mellitus Type 2, Insulin Dependent Hyperglycemia, Resolved Hypoglycemia, Resoved DKA, Resolved. Emesis secondary to DKA, Resolved. Hyperchloremic Metabolic Acidosis, Resolved - The patient's plan was discussed with attending Dr Perla and senior residents Anish Rodriguez MD PGY1 Internal Medicine Time Spent with Patient Time attestation: Total time spent providing and/or coordinating discharge services: greater than 35 minutes. Exam Vital Signs Temp Pulse Resp BP Pulse Ox O2 Del Method 97.4 F 82 17 133/82 H 99 Room Air 06/07/24 11:45 06/07/24 11:45 06/07/24 11:45 06/07/24 11:45 06/07/24 11:45 06/07/24 11:45 Narrative Exam General Appearance: Alert & Oriented X3, well-nourished female who is lying in bed in no acute distress HEENT: Skull symmetrical and atraumatic. Conjunctivae pin and moist. Pupils equal, round, reactive to light and accommodation (PERRL). External ear without lesion or discharge. Straight, nares patient, mucosa pink, no discharge. No thyroid nodule appreciated. Cardio: Normal Rate and Rhythm with S1 and S2 heart sounds. No murmurs or extra heart sounds auscultated. No bruits on carotid auscultation. No peripheral edema or cyanosis. Lungs: Symmetric with good expansion. Chest and back non-tender. Breath sounds vesicular without crackles, wheezing or rhonchi Abdomen: Non-tender, Non-distended, Normal Reactive Bowel Sounds Neuro: Alert, cooperative, oriented to person, place, and time. Speech clear. CN grossly intact. Upper motor strength 5/5 and Lower motor strength 5/5. Sensation intact. Discharge Plan Plan Patient Disposition: HOME (Self Care) Patient condition on transfer: Stable Care Plan Goals: Take all medications as prescribed Use freestyle cydney 2 for monitoring blood sugars Follow-up with PCP as outpatient in 2 weeks In case of emergency, call 911 and come back to the ED Prescriptions/Referrals Prescriptions/Med Rec: New (DME) FreeStyle Cydney 2 Golden Misc See Rx Instructions .Route Qty: 1 0RF Rx Instructions: As directed (DME) FreeStyle Cydney 2 Sensor Kit See Rx Instructions .Route Qty: 1 5RF Rx Instructions: As directed Gvoke HypoPen 1-Pack 0.5 mg/0.1 mL auto-injector 0.5 mg subcut QDAY PRN (Reason: hypoglycemia) Qty: 0.1 0RF (DME) pen needle, diabetic 30 gauge x 5/16 needle See Rx Instructions .Route Qty: 1200 3RF Rx Instructions: As directed insulin degludec 200 unit/mL (3 mL) insulin pen 20 unit subcut QDAY Qty: 9 3RF Continued Ozempic 1 mg/dose (4 mg/3 mL) pen injector 1 mg SUBCUT QWEEK Patient Comments: inject 1 milligram subcutaneously every week Apidra SoloStar U-100 Insulin 100 unit/mL Insulin Pen See Rx Instructions .ROUTE .COMPLEX Rx Instructions: sliding scale 12 to 25 units TID with meals Discontinued Levemir U-100 Insulin 100 unit/mL solution 35 unit SUBCUT HS Referrals: No Primary/Family,Physician [Primary Care Provider] - Patient/Caregiver Discharge Instructions Education Materials: CGM, Discharge Instructions for ..., Diabetes Care Ch, Diabetes Exercise Plan, Diabetes- Measuring Glucose at Home Print Language: Japanese Stand Alone Forms: Aysha Award Info., Patient Portal Info Letter Quality Discharge Quality Measures VTE prophylaxis
--- NOTE | 2024-06-07 14:15 | PC.NURSE ---
discharge delayed, patient states she received a text from her pharmacy that new prescription is not covered by insurance, called MD and made aware, waiting for MD to change prescription.
--- NOTE | 2024-06-07 14:23 | PC.SS ---
SS follow up note; Patient is a ICU down grade, will discharge today
[2024-06-07 16:00] VITALS: BP 126/86; PULSE 83; RESP 16; TEMP 36.7; O2SAT 98
== END 2024-06-07 16:00 | disposition home or self-care (01) | DRG 420 ==
LOC: SERX 14:21 → SERHOLD 14:54 → S2SX 15:58 → S3SX 06-06 10:53
PROVIDERS: Internal Medicine; Nurse Practitioner Primary Care; Student in an Organized Health Care Education/Training Program; Admitting Provider Internal Medicine; Emergency Provider Emergency Medicine; Visit Provider Internal Medicine
DX: E11.10 Type 2 diabetes mellitus with ketoacidosis without coma (principal); F17.200 Nicotine dependence, unspecified, uncomplicated; R00.0 Tachycardia, unspecified; E87.8 Other disorders of electrolyte and fluid balance, not elsewhere classified; E78.5 Hyperlipidemia, unspecified; D64.9 Anemia, unspecified
CPT/HCPCS: 36415; 71045; 80053; 80069; 82010; 82803; 83605; 83690; 83735; 83880; 84100; 84484; 85025; 85610; 85730; 87040; 87081; 87811; 93005; 96361; 96374; 99285; J1650; J1815; J2405; J2470; J2765; J3475; J3480; J7030; J7120